=== PATIENT | male | born 1950 | race Caucasian/White ===

== ENCOUNTER → 2016-06-12 | Outpatient (CLI) | payer BC ==
[~2016-06-12] MED LIST: AC500T PO; ALLP100T PO; ASP81CT PO; CEPH250T PO; DILT300C PO; DILT360C20 PO; DILT360C30 PO; ENOX100D9 SQ; FLUT16SP22 NSEACH; FLUT50DI IH; GLUC-113 PO; HYDR-34 PO; HYDR-3454 PO; NAPR220C PO; NITR-33 PO; OMEG-9 PO; OXYC1TAB87 PO; POLY17PO23 PO; TADA5TAB2 PO; TAMS0.4C2 PO; TMSL.4C PO; WRF10T PO
[2016-06-12 17:35] LABS: ALANINE AMINOTRANSFERASE 18 U/L (0-55); ALBUMIN 3.8 G/DL (3.2-4.5); ANION GAP 4 MMOL/L (5-14); ASPARTATE AMINO TRANSFERASE 21 U/L (5-34); BILIRUBIN,TOTAL 0.4 MG/DL (0.1-1.0); BLOOD UREA NITROGEN 30 MG/DL (7-18); BUN/CREATININE RATIO 26; CALCIUM 8.9 MG/DL (8.5-10.1); CARBON DIOXIDE 28 MMOL/L (21-32); CHLORIDE 110 MMOL/L (98-107); CREATININE SERUM 1.14 MG/DL (0.60-1.30); GFR ESTIMATED > 60; GLUCOSE 111 MG/DL (70-105); POTASSIUM 4.2 MMOL/L (3.6-5.0); SODIUM 142 MMOL/L (135-145); TOTAL PROTEIN 6.4 G/DL (6.4-8.2)
== END ==
LOC: LAB 17:02
PROVIDERS: ATTEND Family Medicine
DX: I10 Essential (primary) hypertension (principal)
CPT/HCPCS: 36415; 80053

== ENCOUNTER → 2016-08-04 | Outpatient (CLI) | payer BC ==
--- NOTE | 2016-08-04 15:53 | Diagnostic Imaging Report ---
INDICATION: Right shoulder pain. TECHNIQUE: AP, oblique, and transscapular views of the right shoulder were obtained. FINDINGS: No fracture or dislocation is seen. There is no acute bony abnormality. There is mild degenerative change of the AC joint. IMPRESSION: Mild degenerative change of the AC joint; otherwise, negative study. Dictated by: Dictated on workstation # [id number]
--- NOTE | 2016-08-04 17:27 | Diagnostic Imaging Report ---
AP and lateral views of the thoracic spine. INDICATION: Back pain. FINDINGS: The alignment of the thoracic spine is satisfactory. The vertebral body heights are preserved. Disc heights are also preserved. Multilevel anterior osteophytes are noted. The appearance of the vertebral soft tissues appears grossly unremarkable. IMPRESSION: Degenerative changes with multilevel anterior osteophytes seen. Dictated by: Dictated on workstation # [id number]
--- NOTE | 2016-08-04 17:33 | Diagnostic Imaging Report ---
Three views of the cervical spine. INDICATION: Neck pain. FINDINGS: There is straightening of the cervical spine. The vertebral body heights are preserved. There is mild disc height loss at C3/C4 and also involving C5/C6 and C6/C7. Multilevel anterior osteophytes were seen. Multilevel posterior osteophytes are also noted. Alignment of the facet joints appears satisfactory. There is satisfactory alignment of the lateral masses of C1 and C2. The prevertebral soft tissues appear unremarkable. IMPRESSION: Multilevel disc degenerative changes with suggestion of small posterior osteophytes. Dictated by: Dictated on workstation # [id number]
== END ==
LOC: RAD 15:19
PROVIDERS: ATTEND Family Medicine
DX: M50.31 Other cervical disc degeneration, high cervical region (principal); M47.814 Spondylosis without myelopathy or radiculopathy, thoracic region; M25.511 Pain in right shoulder
CPT/HCPCS: 72040; 72072; 73030

== ENCOUNTER 2016-09-23 15:45 | Outpatient (RCR) | payer BC | END 2016-10-27 11:44 | disposition home or self-care (01) | PROVIDERS: ATTEND Family Medicine | DX: M25.511 Pain in right shoulder (principal) ==

== ENCOUNTER → 2018-06-30 | Outpatient (CLI) | payer BC, MEDICARE ==
[2018-06-30 09:30] LABS: HEMOGLOBIN 15.3 G/DL (13.3-17.7); RED CELL DISTRIBUTION WIDTH 13.4 % (10.0-14.5); WHITE BLOOD COUNT 4.6 10^3/uL (4.3-11.0)
[2018-06-30 09:52] LABS: ALANINE AMINOTRANSFERASE 18 U/L (0-55); ALKALINE PHOSPHATASE 66 U/L (40-136); BILIRUBIN,TOTAL 0.7 MG/DL (0.1-1.0); BUN/CREATININE RATIO 22; CALCIUM 9.3 MG/DL (8.5-10.1); CARBON DIOXIDE 25 MMOL/L (21-32); CHLORIDE 107 MMOL/L (98-107); CHOLESTEROL 178 MG/DL (< 200); CREATININE SERUM 1.03 MG/DL (0.60-1.30); GFR ESTIMATED > 60; GLUCOSE 102 MG/DL (70-105); HDL CHOLESTEROL 63 MG/DL (40-60); POTASSIUM 4.5 MMOL/L (3.6-5.0); SODIUM 140 MMOL/L (135-145); TOTAL PROTEIN 6.7 GM/DL (6.4-8.2); TRIGLYCERIDES 44 MG/DL (<150); VLDL CHOLESTEROL 9 MG/DL (5-40)
[2018-06-30 10:13] LABS: FREE T4 (FREE THYROXINE) 0.88 NG/DL (0.70-1.48)
== END ==
LOC: LAB 09:12
PROVIDERS: ATTEND Family Medicine
DX: E78.5 Hyperlipidemia, unspecified (principal); N40.0 Benign prostatic hyperplasia without lower urinary tract symptoms; I10 Essential (primary) hypertension; I49.9 Cardiac arrhythmia, unspecified
CPT/HCPCS: 36415; 80053; 80061; 84153; 84439; 84443; 85027

== ENCOUNTER → 2018-07-07 | Outpatient (CLI) | payer BC, MEDICARE | LOC: CARD 10:50 | PROVIDERS: ATTEND Family Medicine | DX: R01.1 Cardiac murmur, unspecified (principal); I49.9 Cardiac arrhythmia, unspecified | CPT/HCPCS: 93225; 93226; 93306 ==

== ENCOUNTER 2018-09-11 08:20 | Outpatient (RCR) | payer MEDICARE ==
[2018-11-20] MEDS ORDERED: ASPI-983 PO (09:47)
[2018-11-20] MEDS ORDERED: GLUC100016 PO (09:47)
[2018-11-20] MEDS ORDERED: DILT120T3 PO (09:47)
[2018-11-20] MEDS ORDERED: OMEG1CAP24 PO (09:47)
[2018-11-20] MEDS ORDERED: ALLO100T PO (09:47)
[2018-11-20] MEDS ORDERED: METO-387 PO (09:50)
[2018-11-20] MEDS ORDERED: IBUP-2055 PO (09:50)
[2018-11-20] MEDS ORDERED: ASCO10006 PO (09:50)
[2018-11-20] MEDS ORDERED: FLUT16SP22 NS (09:50)
[2018-11-20] MEDS ORDERED: DILT120C82 PO (09:56)
[2018-11-20] MEDS ORDERED: POLY17PO6 PO (09:57)
[2018-11-20] MEDS ORDERED: ACET325T38 PO (09:57)
== END 2018-12-10 | disposition home or self-care (01) ==
LOC: CARD 08:20
PROVIDERS: ATTEND Internal Medicine Interventional Cardiology
DX: R00.2 Palpitations (principal); I10 Essential (primary) hypertension

== ENCOUNTER 2018-11-20 08:37 | Day surgery (SDC) | payer MEDICARE ==
[~2018-11-20] VITALS: Ht 182.9 cm; Wt 104.3 kg
[2018-11-20] VITALS (14 sets, daily range): BP systolic 115–150; BP diastolic 82–112
[2018-11-20] MEDS ORDERED: HEParin (CATH LAB) 2,000 ML IV ONE (08:42)
[2018-11-20] MEDS ORDERED: LIDOCAINE 1% INJ 20 ML 20 ML VIAL ONE (08:42)
[2018-11-20] MEDS ORDERED: NS IV 1000 ML 1,000 ML ONE (08:42)
[2018-11-20] MEDS ORDERED: NS IV 1000 ML 1,000 ML IV SCH ×2 (08:44→15:00)
[2018-11-20] MEDS ORDERED: ISOPROTERENOL 0.2 MG/D5W 50 ML IV ONE (08:45)
[2018-11-20 09:17] LABS: MEAN PLATELET VOLUME 10.2 FL (7.4-10.4); RED CELL DISTRIBUTION WIDTH 13.6 % (10.0-14.5); WHITE BLOOD COUNT 5.3 10^3/uL (4.3-11.0)
[2018-11-20 09:40] LABS: ALANINE AMINOTRANSFERASE 14 U/L (0-55); ALKALINE PHOSPHATASE 66 U/L (40-136); BILIRUBIN,TOTAL 0.7 MG/DL (0.1-1.0); BUN/CREATININE RATIO 20; CALCIUM 9.2 MG/DL (8.5-10.1); CARBON DIOXIDE 24 MMOL/L (21-32); CHLORIDE 110 MMOL/L (98-107); CREATININE SERUM 0.98 MG/DL (0.60-1.30); GFR ESTIMATED > 60; GLUCOSE 104 MG/DL (70-105); SODIUM 141 MMOL/L (135-145); TOTAL PROTEIN 6.8 GM/DL (6.4-8.2)
[2018-11-20] MEDS ORDERED: ASPI-983 PO (09:47)
[2018-11-20] MEDS ORDERED: GLUC100016 PO (09:47)
[2018-11-20] MEDS ORDERED: ALLO100T PO (09:47)
[2018-11-20] MEDS ORDERED: OMEG1CAP24 PO (09:47)
[2018-11-20] MEDS ORDERED: DILT120T3 PO (09:47)
[2018-11-20] MEDS ORDERED: IBUP-2055 PO (09:50)
[2018-11-20] MEDS ORDERED: FLUT16SP22 NS (09:50)
[2018-11-20] MEDS ORDERED: METO-387 PO (09:50)
[2018-11-20] MEDS ORDERED: ASCO10006 PO (09:50)
[2018-11-20] MEDS ORDERED: DILT120C82 PO (09:56)
[2018-11-20] MEDS ORDERED: ACET325T38 PO (09:57)
[2018-11-20] MEDS ORDERED: POLY17PO6 PO (09:57)
--- NOTE | 2018-11-20 10:02 | NUR ---
SPOKE WITH PT (HE HAD A LIST) WELL CALLING [facility] IN [place] TO COMPLETE THE MED REC. HE WAS ABLE TO TELL ME ALL HIS MEDS AND HOW HE TAKES THEM. [facility] VERIFIED ALL MEDS AND THEY WERE ALL HAD GOOD DATING. OTC MEDS: ACETAMINOPHEN 325M TS Q 8 H PRN ASPIRIN 81M DAILY IBUPROFEN 200M TS Q 8 H PRN VITAMIN C : 1 DAILY FISH OIL; 1 DAILY GLUCOSAMINE; 1 DAILY FLUTICASONE: UD MIRALAX; 1 CAPFUL DAILY
[2018-11-20] MEDS ORDERED: PROPOFOL DRIP (ICU) 100 ML IV ONE ×2 (11:39→14:02)
[2018-11-20] MEDS ORDERED: ONDANSETRON 4 MG/2 ML (SDV) Z0FRAN ONE (11:39)
[2018-11-20] MEDS ORDERED: MIDAZOLAM 5 MG/5 ML (VERSED) VIAL ONE (11:40)
[2018-11-20] MEDS ORDERED: fentaNYL INJECTION 100 MCG/2 ML AMP ONE (11:40)
[2018-11-20] MEDS ORDERED: FAMOTIDINE 20MG/2ML IV (PEPCID) ONE (11:43)
[2018-11-20] MEDS ORDERED: SCOPOLAMINE 1.5 MG (TRANSDERM-SCOP) PATCH ONE (11:43)
[2018-11-20] MEDS ORDERED: PATIENT MAY USE OWN MEDS, ALL PO SCH (15:00)
--- NOTE | 2018-11-20 15:00 | Cardiac Procedure Note-CS/ASA ---
Pre-Procedure Note Pre-Op Procedure Note H&P Reviewed The H&P was reviewed, patient examined and no changes noted. Date H&P Reviewed: Nov 20, 2018 Time H&P Reviewed: 11:00 Conscious Sedation Pre-Proced Time 11:00 ASA Score 3 For ASA 3 and 4: Consider anesthesia and medical clearance. Also, for patients with a history of failed moderate sedation consider anesthesia. Airway Lungs Heart ASA score ASA 1: a normal healthy patient ASA 2: a patient with a mild systemic disease (mid diabetes, controlled hypertension, obesity ASA 3: a patient with a severe systemic disease that limits activity (angina, COPD, prior Myocardial infarction) ASA 4: a patient with an incapacitating disease that is a constant threat to life (CHF, renal failure) ASA 5: a moribund patient not expected to survive 24 hrs. (ruptured aneurysm) ASA 6: a declared brain- patient whose organs are being harvested. For emergent operations, add the letter E after the classification Mallampati Classification Grade 1 Sedation Plan Analgesia, Amnesia, Plan communicated to team members, Discussed options with patient/fam, Discussed risks with patient/fam The patient is an appropriate candidate to undergo the planned procedure, sedation, and anesthesia. The patient immediately re-assessed prior to indication. Regan ZARAGOZA MD Nov 20, 2018 15:00
--- NOTE | 2018-11-20 15:00 | Electrophysiology Procedure ---
EP Procedure DATE OF SERVICE:11/20/18 CARDIAC DIRECTIONAL DRILLER: Neel Cordero MD, [facility], [facility]. INDICATION:PSVT, palpitations. PREOPERATIVE DIAGNOSIS:PSVT, palpitations. POSTOPERATIVE DIAGNOSES:nonsustained right atrial tachycardia, no other sustained tachycardia. HISTORY: this is a 68-year-old gentleman with complains of palpitations. Noninvasive monitoring demonstrated PSVT at 176 BPM.The patient is planned for comprehensive EP study and ablation. PROCEDURE PERFORMED: 1. Comprehensive EP study with induction. 2. Fluoroscopy. 3. left atrial pacing and recording. 4. Drug infusion. COMPLICATION: None. ESTIMATED BLOOD LOSS: 10 mL. CONTRAST USED: None. FLUOROSCOPY TIME: 4.2 minutes. FLUOROSCOPY DOSE: 92 mgy. SPECIMENS: None. ANESTHESIA: Done by our anesthesia colleagues. ANTICOAGULATION: none. PROCEDURE IN DETAIL: After informed consent was taken, the patient was brought to the EP lab. Anesthesia was provided by our anesthesia colleagues. The patient was draped and prepped in the usual sterile fashion. The patient presented to the EP lab in sinus rhythm. Access was gained in the right femoral vein with a 6-Divehi and an 8-Divehi sheath. Left access in left femoral vein was gained with 5-Divehi and 6-Divehi sheath respectively. High right atrial catheter was an Linda catheter, right ventricular catheter was placed, his catheter and the CS catheter were also placed. A comprehensive EP study was done including left atrial pacing and recording. Dual AV daryn physiology could not be demonstrated. However we were able to demonstrate single AV daryn echoes and possible dual AV daryn echoes as well however the timing of the his to A was inconsistent. Left atrial pacing and recording did not demonstrate a left-sided bypass tract. RV pacing demonstrated concentric atrial activation in the CS. Isuprel was given and during rapid atrial pacing nonsustained right atrial tachycardia was demonstrated. However the tachycardia was not sustained to perform any diagnostic maneuvers. Variable cycle length. AA drives VV. termination in V. during Isuprel infusion and washout we could not induce AVNRT. Typical atrial flutter was not induced with rapid atrial pacing with and without Isuprel infusion. The patienttolerated the procedurewell and did not have any complication. The patientleft the lab in sinus rhythm. MEASUREMENTS/EP STUDY: AH interval 155 ms, HV interval 52 ms, NY interval 244 ms, QRS duration 65 ms, QT interval to 41 ms, R-R interval 725 ms, AV Wenckebach when pacing at 300 ms, Retrograde Wenckebach when pacing at cycle length 400 ms, Atrial ERP at 600/260 ms, Ventricular ERP was 600/240 ms, Atrial ERP was 500/240 ms, Atrial ERP was 400/190 ms, Atrial ERP was 450/200 ms, Atrial ERP was 600/250 ms, PLAN: The patient will be observed for 4 hours and then discharged. Neel Cordero MD, RS, CCDS Cardiac Electrophysiology Regan CORDERO MD Nov 20, 2018 15:00
[2018-11-20] MEDS ORDERED: MEPERIDINE (DEMEROL) INJ 50 MG/ML IVP ONE (15:30)
[2018-11-20] MEDS ORDERED: morphine INJ 10 MG/ML 1ML (SYR OR VIAL) IVP ONE (15:30)
--- NOTE | 2018-11-20 15:40 | Discharge Inst-Post CATH ---
Discharge Inst-CATH/EP Problems Reviewed?: Yes Final Diagnosis paroxysmal atrial tachycardia, PSVT Post Cardiac Cath/EP D/C Inst Follow Up/Plan Dr. Cordero in 2-3 weeks. <b>CARDIAC CATH/EP PROCEDURE DISCHARGE INSTRUCTIONS</b> ACTIVITY * Go Home directly and rest. * Limit activity of the leg (or wrist if it was used) for 7 days including aerobics, swimming, jogging, bicycling, etc. * Restrict stair-climbing for 7 days if possible, if not, climb up with your non-cath leg, then bring together on the same step. * Avoid lifting, pushing, pulling or excessive movement of the affected extremity for 7 days. * Customary sexual activity may be resumed after 2 days-use caution not to use a position that strains or causes pain to the affected extremity. * No driving for 24 hours. * NO SMOKING. * Avoid straining for bowel movements for 7 days. * Gentle walking on level ground is allowed. * Returning to work will depend on the type of procedure and the results. Your doctor will discuss this with you. CALL YOUR DOCTOR FOR ANY OF THE FOLLOWING: *If bleeding from the puncture site occurs- Apply gentle pressure to site with clean cloth and call your doctor or EMS. * If a knot or lump forms under the skin, increases in size, or causes pain. * If bruising appears to be worsening or moving further down your leg instead of disappearing. * Temperature above 101 F. CARE OF YOUR GROIN INCISION; * Bruising or purple discoloration of the skin near the puncture site is common. * You may shower only, no bathtub bathing for 5 days. Be careful to avoid slip ping as your leg may feel stiff. * If a closure device was used on your femoral artery, please see the attached guide regarding care of the device and your leg. * Leave dressing on FOR 24 hours. CARE OF YOUR WRIST INCISION; * Bruising or purple discoloration of the skin near the puncture site is common. * You may shower. * DO NOT submerge wrist. * Leave dressing on FOR 24 hours. Regan CORDERO MD Nov 20, 2018 15:40
--- NOTE | 2018-11-20 15:47 | Cardiology Discharge Summary ---
Diagnosis/Chief Complaint Date of Admission 11/20/2018 Date of Discharge 11/20/2018 Admission Diagnosis PSVT Final/Discharge Diagnosis paroxysmal atrial tachycardia, PSVT Chief Complaint/HPI Chief Complaint/HPI this is a 68-year-old gentleman who complains of palpitations. Noninvasive monitoring demonstrated PSVT at 176 BPM for 13 beats. Numerous episodes. EP study and possible ablation was recommended. Discharge Summary Procedures EP study did not demonstrate dual AV daryn physiology. No evidence of left lateral pathway. without Isuprel Possible single and dual AV daryn echoes which were not confirmed. On Isuprel and rapid atrial pacing,nonsustained right atrial tachycardia, with the earliest activation in the high right atrial catheter. A driving the V. AA cycle length variability. Termination in V. However we could not perform any diagnostic maneuvers since the tachycardia was not sustained. Tachycardia cycle length of [id number] milliseconds. No other arrhythmias were inducible. Therefore no ablation was done. it is likely that the patient may have dual AV daryn echoes however in the absence of dual AV daryn physiology, I decided not to do slow pathway modification. Discharge Physical Examination unremarkable. Hospital Course Was the Problem List Reviewed?: Yes stable. Pending Labs Laboratory Tests 11/20/18 09:05: White Blood Count 5.3, Red Blood Count 4.79, Hemoglobin 15.0, Hematocrit 45, Mean Corpuscular Volume 94, Mean Corpuscular Hemoglobin 31, Mean Corpuscular Hemoglobin Concent 34, Red Cell Distribution Width 13.6, Platelet Count 142, Mean Platelet Volume 10.2, Prothrombin Time 14.0, INR Comment 1.0, Activated Partial Thromboplast Time 33, Sodium Level 141, Potassium Level 4.0, Chloride Level 110, Carbon Dioxide Level 24, Anion Gap 7, Blood Urea Nitrogen 20, Creatinine 0.98, Estimat Glomerular Filtration Rate > 60, BUN/Creatinine Ratio 20, Glucose Level 104, Calcium Level 9.2, Corrected Calcium 9.2, Total Bilirubin 0.7, Aspartate Amino Transf (AST/SGOT) 19, Alanine Aminotransferase (ALT/SGPT) 1 4, Alkaline Phosphatase 66, Total Protein 6.8, Albumin 4.0 Discussion & Recommendations Discussion discussed at length with the . Patient will probably get a loop monitor as an outpatient. Follow up appt.: Dr. Cordero in 2-3 weeks. Dicharge Diet: Cardiac Diet Activity as Tolerated: Yes Home Medications Reviewed patient Home Medication Reconciliation performed by pharmacy medication reconciliations prosthetic technician and/or nursing. Patients Allergies have been reviewed. Discharge Home Medications: Reviewed and agree with Discharge Medication list on patient's Discharge Instruction sheet Condition at discharge stable. Instructions to patient/family Dr. Cordero in 2-3 weeks. Regan CORDERO MD Nov 20, 2018 15:47
== END 2018-11-20 20:46 | disposition home or self-care (01) ==
LOC: CATH 08:37 → ICU 15:59 → CATH 20:46
PROVIDERS: ATTEND Internal Medicine Interventional Cardiology
DX: I47.1 Supraventricular tachycardia (principal); I10 Essential (primary) hypertension; I49.1 Atrial premature depolarization; I49.3 Ventricular premature depolarization; Z79.82 Long term (current) use of aspirin; Z79.899 Other long term (current) drug therapy; Z79.51 Long term (current) use of inhaled steroids; Z82.3 Family history of stroke; Z80.9 Family history of malignant neoplasm, unspecified; Z82.49 Family history of ischemic heart disease and other diseases of the circulatory system; Z84.1 Family history of disorders of kidney and ureter
CPT/HCPCS: 36415; 80053; 85027; 85610; 85730; 87081; 93005; 93620; 93621; 93623

== ENCOUNTER → 2018-12-21 | Day surgery (SDC) | payer MEDICARE ==
[~2018-12-21] VITALS: Ht 182 cm; Wt 110.0 kg
[~2018-12-21] MED LIST changes: +ACET325T38 PO; +ALLO100T PO; +ASCO10006 PO; +ASPI-983 PO; +DILT120C82 PO; +DILT120T3 PO; +FLUT16SP22 NS; +GLUC100016 PO; +IBUP-2055 PO; +LIDOCAINE 1% INJ 20 ML 20 ML VIAL INJ ONE; +LIDOCAINE 1% INJ 20 ML 20 ML VIAL ONE; +METO-387 PO; +OMEG1CAP24 PO; +POLY17PO6 PO
[2018-12-21 08:38] VITALS: BP 138/83
--- NOTE | 2018-12-21 15:29 | Implantation of Loop Monitor ---
Implant of Loop Monitior PROCEDURE PHYSICIAN: Neel Cordero MD IMPLANTATION OF LOOP MONITOR REPORT DATE OF PROCEDURE: 12/21/18 PERFORMING PHYSICIAN: Dr. Sudhakar Cordero. INDICATION: Long-term surveillance of atrial fibrillation PREOP DIAGNOSIS: Long-term surveillance of atrial fibrillation POSTOP DIAGNOSIS: Paroxysmal Atrial fibrillation, s/p implantation of loop recorder. PROCEDURE DETAILS: The patient is a 68 male with history of paroxysmal atrial fibrillation requiring long-term surveillance. Therefore implantable loop recorder was discussed and agreed with the patient. Informed consent was taken. All risks and complications were discussed at length. The patient was draped and prepped in the usual sterile fashion. Local anesthesia was lidocaine, which was given in the substernal area close to the 4th intercostal space. Loop monitor was implanted according to the protocol. Steri-Strips were placed at the end of the procedure. There were no complications and the patient tolerated the procedure well. The device was interrogated with a voltage of 0.49 mV. ANESTHESIA: Local anesthesia with lidocaine. COMPLICATIONS: None CONTRAST/FLUOROSCOPY: None CONCLUSION: 1. Successful implantation of loop monitor for long-term surveillance of paroxysmal atrial fibrillation. 2. No complication and the patient tolerated the procedure well. Neel Cordero MD, [facility], CCDS Cardiac Electrophysiology Regan CORDERO MD Dec 21, 2018 15:29
== END ==
LOC: CATH 08:24
PROVIDERS: ATTEND Internal Medicine Interventional Cardiology
DX: I48.0 Paroxysmal atrial fibrillation (principal); I47.1 Supraventricular tachycardia; I10 Essential (primary) hypertension; I49.3 Ventricular premature depolarization; I49.1 Atrial premature depolarization; Z95.818 Presence of other cardiac implants and grafts; Z79.82 Long term (current) use of aspirin; Z79.899 Other long term (current) drug therapy; Z88.8 Allergy status to other drugs, medicaments and biological substances; Z82.49 Family history of ischemic heart disease and other diseases of the circulatory system; Z80.9 Family history of malignant neoplasm, unspecified; Z82.3 Family history of stroke
CPT/HCPCS: 33285

== ENCOUNTER → 2019-08-14 | Outpatient (CLI) | payer MEDICARE ==
[~2019-08-14] MED LIST changes: -IBUP-2055 PO; +IBUP-2473 PO; -LIDOCAINE 1% INJ 20 ML 20 ML VIAL INJ ONE; -LIDOCAINE 1% INJ 20 ML 20 ML VIAL ONE; -METO-387 PO; +MTP25TSR PO
[2019-08-14 09:05] LABS: BASOPHILS % (AUTO) 0 % (0-10); EOSINOPHILS # (AUTO) 0.1 10^3/uL (0.0-0.3); EOSINOPHILS % (AUTO) 2 % (0-10); HEMATOCRIT 46 % (40-54); HEMOGLOBIN 15.5 G/DL (13.3-17.7); LYMPHOCYTES # (AUTO) 1.3 X 10^3 (1.0-4.0); LYMPHOCYTES % (AUTO) 25 % (12-44); MEAN CORPUSCULAR HEMOGLOBIN 32 PG (25-34); MEAN CORPUSCULAR HGB CONC 34 G/DL (32-36); MEAN CORPUSCULAR VOLUME 95 FL (80-99); MEAN PLATELET VOLUME 9.7 FL (7.4-10.4); MONOCYTES # (AUTO) 0.5 X 10^3 (0.0-1.0); MONOCYTES % (AUTO) 9 % (0-12); NEUTROPHILS # (AUTO) 3.3 X 10^3 (1.8-7.8); NEUTROPHILS % (AUTO) 63 % (42-75); PLATELET COUNT 149 10^3/uL (130-400); RED CELL DISTRIBUTION WIDTH 14.4 % (10.0-14.5); WHITE BLOOD COUNT 5.2 10^3/uL (4.3-11.0)
[2019-08-14 09:25] LABS: CHLORIDE 108 MMOL/L (98-107); POTASSIUM 4.6 MMOL/L (3.6-5.0); SODIUM 141 MMOL/L (135-145)
[2019-08-14 09:26] LABS: CALCIUM 9.2 MG/DL (8.5-10.1)
[2019-08-14 09:27] LABS: TRIGLYCERIDES 61 MG/DL (<150); VLDL CHOLESTEROL 12 MG/DL (5-40)
[2019-08-14 09:28] LABS: GLUCOSE 104 MG/DL (70-105)
[2019-08-14 09:29] LABS: BILIRUBIN,TOTAL 0.8 MG/DL (0.1-1.0); CARBON DIOXIDE 24 MMOL/L (21-32)
[2019-08-14 09:31] LABS: ALKALINE PHOSPHATASE 68 U/L (40-136); CREATININE SERUM 1.01 MG/DL (0.60-1.30); GFR ESTIMATED > 60
[2019-08-14 09:32] LABS: CHOLESTEROL 188 MG/DL (< 200)
[2019-08-14 09:33] LABS: BUN/CREATININE RATIO 24
[2019-08-14 09:34] LABS: HDL CHOLESTEROL 65 MG/DL (40-60)
[2019-08-14 09:35] LABS: ALANINE AMINOTRANSFERASE 17 U/L (0-55); URIC ACID 4.6 MG/DL (2.6-7.2)
[2019-08-14 09:43] LABS: FREE T4 (FREE THYROXINE) 0.83 NG/DL (0.70-1.48)
== END ==
LOC: LAB 08:37
PROVIDERS: ATTEND Family Medicine
DX: E78.2 Mixed hyperlipidemia (principal); I10 Essential (primary) hypertension; M10.9 Gout, unspecified; N40.0 Benign prostatic hyperplasia without lower urinary tract symptoms
CPT/HCPCS: 36415; 80053; 80061; 84153; 84439; 84443; 84550; 85025

== ENCOUNTER → 2020-08-12 | Outpatient (CLI) | payer MEDICARE ==
[~2020-08-12] MED LIST changes: +ASCO100024 PO; -ASCO10006 PO; +ASPI-1238 PO; -ASPI-983 PO
[2020-08-12 10:27] LABS: BASOPHILS % (AUTO) 1 % (0-10); EOSINOPHILS # (AUTO) 0.1 10^3/uL (0.0-0.3); EOSINOPHILS % (AUTO) 2 % (0-10); HEMATOCRIT 49 % (40-54); HEMOGLOBIN 16.1 g/dL (13.3-17.7); LYMPHOCYTES # (AUTO) 1.5 10^3/uL (1.0-4.0); LYMPHOCYTES % (AUTO) 24 % (12-44); MEAN CORPUSCULAR HEMOGLOBIN 30 pg (25-34); MEAN CORPUSCULAR HGB CONC 33 g/dL (32-36); MEAN CORPUSCULAR VOLUME 93 fL (80-99); MEAN PLATELET VOLUME 10.5 fL (9.0-12.2); MONOCYTES # (AUTO) 0.6 10^3/uL (0.0-1.0); MONOCYTES % (AUTO) 9 % (0-12); NEUTROPHILS % (AUTO) 64 % (42-75); PLATELET COUNT 161 10^3/uL (130-400); WHITE BLOOD COUNT 6.2 10^3/uL (4.3-11.0)
[2020-08-12 10:37] LABS: ALANINE AMINOTRANSFERASE 18 U/L (0-55); ALKALINE PHOSPHATASE 67 U/L (40-136); BILIRUBIN,TOTAL 0.5 MG/DL (0.1-1.0); BUN/CREATININE RATIO 22; CALCIUM 9.5 MG/DL (8.5-10.1); CARBON DIOXIDE 27 MMOL/L (21-32); CHLORIDE 107 MMOL/L (98-107); CHOLESTEROL 182 MG/DL (< 200); CREATININE SERUM 1.19 MG/DL (0.60-1.30); GFR ESTIMATED > 60; GLUCOSE 105 MG/DL (70-105); HDL CHOLESTEROL 64 MG/DL (40-60); POTASSIUM 4.3 MMOL/L (3.6-5.0); SODIUM 141 MMOL/L (135-145); TOTAL PROTEIN 7.3 GM/DL (6.4-8.2); TRIGLYCERIDES 71 MG/DL (<150); VLDL CHOLESTEROL 14 MG/DL (5-40)
[2020-08-12 10:58] LABS: FREE T4 (FREE THYROXINE) 0.94 NG/DL (0.70-1.48)
== END ==
LOC: LAB 09:41
PROVIDERS: ATTEND Family Medicine
DX: Z00.01 Encounter for general adult medical examination with abnormal findings (principal); E78.2 Mixed hyperlipidemia; I10 Essential (primary) hypertension
CPT/HCPCS: 36415; 80053; 80061; 84439; 84443; 85025

== ENCOUNTER 2021-10-07 07:07 | Outpatient (CLI) | payer MEDICARE ==
[2021-10-07] MEDS ORDERED: CHOL-6 PO (08:50)
[2021-10-07] MEDS ORDERED: AMLO-250 PO (08:50)
[2021-10-07] MEDS ORDERED: AMIO200T65 PO (08:50)
[2021-10-07] MEDS ORDERED: DIPH25TA29 PO (08:51)
[2021-10-07] MEDS ORDERED: POTA15TA9 PO (08:58)
== END 2021-10-07 09:06 | disposition home or self-care (01) ==
LOC: PREOP 07:07
PROVIDERS: ATTEND Internal Medicine
DX: Z01.818 Encounter for other preprocedural examination (principal)

== ENCOUNTER 2021-10-16 06:52 | Day surgery (SDC) | payer MEDICARE ==
--- NOTE | 2021-10-07 08:43 | HISTORY AND PHYSICAL ---
DATE OF SERVICE: COLONOSCOPY HISTORY AND PHYSICAL DATE OF ADMISSION: ____. HISTORY OF PRESENT ILLNESS: The patient is a 71-year-old white male referred by Dr. Rojas for screening colonoscopy. He was not sure how long it had been, but on review of his electronic medical record, he underwent colonoscopy in [address] Lynn which was reportedly normal. He denies change in bowel habit or abdominal pain, melena or bright red blood per rectum. He is deemed to be of average risk as he is not aware of any family history for colon cancer. PAST SURGICAL HISTORY: Significant for right total knee replacement in 04/2000. PAST MEDICAL HISTORY: Significant for hypertension, paroxysmal atrial fibrillation and PSVT. There have been no reported recurrences on amiodarone. He has an implanted loop recorder. Recent interrogation per his reports no evidence for atrial fib or any significant arrhythmias. SOCIAL HISTORY: He is retired. Previous county employee for 32 years. No smoking history, one or two beers once or twice a week in regard to alcohol intake. FAMILY HISTORY: He is not aware of any family history for colon cancer. REVIEW OF SYSTEMS: CONSTITUTIONAL: Denies night sweats, chills, fever or change in weight. GASTROINTESTINAL: As noted in the HPI. PULMONARY: Denies cough, wheezing or shortness of breath. CARDIOVASCULAR: Denies orthopnea, PND, pedal edema, palpitations or chest discomfort. PHYSICAL EXAMINATION: GENERAL: Reveals a pleasant white male in no acute distress. VITAL SIGNS: Weight 240 pounds and blood pressure 130/90. HEENT: Unremarkable. Sclerae nonicteric. NECK: Reveals no JVD, adenopathy or bruits. CHEST: Clear to auscultation. CARDIOVASCULAR: Reveals a regular rate and rhythm without murmur, S3 or S4. ABDOMEN: Soft, supple without mass, organomegaly or tenderness. EXTREMITIES: Reveal no cyanosis, clubbing or edema. ASSESSMENT AND PLAN: The patient is being set up for screening colonoscopy, deemed to be of average risk. Prep instructions were given and questions were answered. Electronic medical record was reviewed. I thank you for the referral of this pleasant gentleman. Job ID: [id number] DocumentID: [id number] Dictated Date: 10/01/2021 15:42:47 Expedition Supervisor Date: 10/01/2021 16:17:24 Dictated By: PAIGE MONTES MD [facility]ITALIn[facility]
[~2021-10-16] VITALS: Ht 183 cm; Wt 110.0 kg
[~2021-10-16 06:52] MED LIST changes: +AMIO200T65 PO; +AMLO-250 PO; +CHOL-6 PO; +DIPH25TA29 PO; +POTA15TA9 PO
[2021-10-16] MEDS ORDERED: LACTATED RINGERS 1,000 ML IV STA (07:02)
[2021-10-16 07:13] VITALS: BP 136/80
[2021-10-16] MEDS ORDERED: PROPOFOL INJECTION 50 ML IV ONE (07:25)
[2021-10-16] MEDS ORDERED: MIDAZOLAM 2 MG/2 ML (VERSED) VIAL ONE (07:25)
[2021-10-16] MEDS ORDERED: ONDANSETRON 4 MG/2 ML (SDV) Z0FRAN IV ONE (07:30)
--- NOTE | 2021-10-16 08:00 | Pre-Op Note & Conscious Sedat ---
Pre-Operative Progress Note Date of Available H&P: Oct 16, 2021 Date H&P Reviewed: Oct 16, 2021 Time H&P Reviewed: 07:45 History & Physical: H&P Reviewed, Patient Examed, No changes noted Pre-Op Diagnosis: screening colon Conscious Sedation Pre-Proced Time 07:59 ASA Score 2 For ASA 3 and 4: Consider anesthesia and medical clearance. Also, for patients with a history of failed moderate sedation consider anesthesia. Airway Lungs Heart ASA score ASA 1: a normal healthy patient ASA 2: a patient with a mild systemic disease (mid diabetes, controlled hypertension, obesity ASA 3: a patient with a severe systemic disease that limits activity (angina, COPD, prior Myocardial infarction) ASA 4: a patient with an incapacitating disease that is a constant threat to life (CHF, renal failure) ASA 5: a moribund patient not expected to survive 24 hrs. (ruptured aneurysm) ASA 6: a declared brain- patient whose organs are being harvested. For emergent operations, add the letter E after the classification Mallampati Classification Grade 2 Sedation Plan Analgesia, Amnesia, Plan communicated to team members, Discussed options with patient/fam, Discussed risks with patient/fam The patient is an appropriate candidate to undergo the planned procedure, sedation, and anesthesia. The patient immediately re-assessed prior to indication. PAIGE MONTES MD Oct 16, 2021 08:00
[2021-10-16 08:34] VITALS: BP 99/63
[2021-10-16 08:39] VITALS: BP 103/67
[2021-10-16 08:45] VITALS: BP 119/67
[2021-10-16 09:04] VITALS: BP 119/67
--- NOTE | 2021-10-16 11:48 | Anesthesia-General Post-Op ---
MAC Patient Condition Mental Status/LOC: Same as Preop Cardiovascular: Satisfactory Nausea/Vomiting: Absent Respiratory: Satisfactory Pain: Controlled Complications: Absent Post Op Complications Complications None Follow Up Care/Instructions Patient Instructions None needed. Anesthesiology Discharge Order Discharge Order Patient is doing well, no complaints, stable vital signs, no apparent adverse anesthesia problems. No complications reported per nursing. ROMA ESPINAL CRNA Oct 16, 2021 11:48
--- NOTE | 2021-10-16 13:43 | OPERATIVE REPORT ---
DATE OF SERVICE: COLONOSCOPY SUMMARY INDICATION FOR THE PROCEDURE: Screening colonoscopy. PROCEDURE IN DETAIL: The patient was placed in the left lateral decubitus position. Prior to undergoing colonoscopy, digital rectal evaluation was performed. Anal sphincter tone was normal. The perianal reflexes intact. The prostate is mildly enlarged and anodular on digital inspection. No abnormalities were noted on digital inspection of the anal canal or distal rectal vault. The colonoscope was then inserted into the rectum and under direct visualization advanced to the cecum. The cecum was identified by identification of the ileocecal valve and cecal strap. Photographic documentation was obtained. A careful inspection was made as the colonoscope was withdrawn. Quality of prep was fair. FINDINGS: There was one grade II internal hemorrhoid complex noted. No other rectal abnormalities were noted. No evidence for external hemorrhoids were noted. Several small sigmoid diverticulum were present without evidence for diverticulitis. No other sigmoid colonic abnormalities were appreciated. The descending colon, splenic flexure, transverse colon, hepatic flexure, ascending colon, and cecum were unremarkable. ASSESSMENT One grade II internal hemorrhoid complex was noted to digital rectal evaluation, was compatible with mild BPH. Mild diverticular disease confined to the sigmoid colon was present without evidence of diverticulitis. There was no evidence for neoplasia on today's evaluation. Considering that this is the patient's second normal colonoscopy, his age and lack of family history for colon cancer, we would not advocate future screening colonoscopy. Job ID: [id number] DocumentID: [id number] Dictated Date: 10/16/2021 08:31:22 Camp Manager Date: 10/16/2021 13:42:55 Dictated By: PAIGE MONTES MD
== END 2021-10-16 09:35 | disposition home or self-care (01) ==
LOC: ENDO 06:52
PROVIDERS: ATTEND Internal Medicine
DX: Z12.11 Encounter for screening for malignant neoplasm of colon (principal); N40.0 Benign prostatic hyperplasia without lower urinary tract symptoms; K64.1 Second degree hemorrhoids; K57.30 Diverticulosis of large intestine without perforation or abscess without bleeding; Z79.82 Long term (current) use of aspirin; Z28.310 Unvaccinated for COVID-19

== ENCOUNTER → 2021-11-13 | Outpatient (CLI) | payer MEDICARE ==
[2021-11-13 12:15] LABS: CREATININE SERUM 1.39 MG/DL (0.60-1.30); POTASSIUM 4.5 MMOL/L (3.6-5.0)
== END ==
LOC: LAB 11:29
PROVIDERS: ATTEND Family Medicine
DX: N28.9 Disorder of kidney and ureter, unspecified (principal)
CPT/HCPCS: 36415; 80048

== ENCOUNTER → 2022-02-22 | Outpatient (CLI) | payer MEDICARE ==
[2022-02-22 12:30] LABS: ALBUMIN 3.9 GM/DL (3.2-4.5); BILIRUBIN,TOTAL 0.6 MG/DL (0.1-1.0); CREATININE SERUM 1.31 MG/DL (0.60-1.30); POTASSIUM 4.5 MMOL/L (3.6-5.0); TOTAL PROTEIN 6.9 GM/DL (6.4-8.2)
== END ==
LOC: LAB 11:58
PROVIDERS: ATTEND Family Medicine
DX: E78.2 Mixed hyperlipidemia (principal); Z79.899 Other long term (current) drug therapy
CPT/HCPCS: 36415; 80053; 80061; 84443

== ENCOUNTER → 2023-02-21 | Outpatient (CLI) | payer MEDICARE ==
[2023-02-21 09:11] LABS: BASOPHILS % (AUTO) 1 % (0-10); EOSINOPHILS # (AUTO) 0.1 10^3/uL (0.0-0.3); EOSINOPHILS % (AUTO) 2 % (0-10); HEMATOCRIT 46 % (40-54); HEMOGLOBIN 15.3 g/dL (13.3-17.7); LYMPHOCYTES # (AUTO) 1.5 10^3/uL (1.0-4.0); LYMPHOCYTES % (AUTO) 26 % (12-44); MEAN CORPUSCULAR HEMOGLOBIN 31 pg (25-34); MEAN CORPUSCULAR HGB CONC 33 g/dL (32-36); MEAN CORPUSCULAR VOLUME 95 fL (80-99); MEAN PLATELET VOLUME 9.6 fL (9.0-12.2); MONOCYTES # (AUTO) 0.4 10^3/uL (0.0-1.0); MONOCYTES % (AUTO) 7 % (0-12); NEUTROPHILS # (AUTO) 3.7 10^3/uL (1.8-7.8); NEUTROPHILS % (AUTO) 64 % (42-75); PLATELET COUNT 143 10^3/uL (130-400); WHITE BLOOD COUNT 5.7 10^3/uL (4.3-11.0)
[2023-02-21 09:35] LABS: ALBUMIN 3.8 GM/DL (3.2-4.5); BILIRUBIN,TOTAL 0.6 MG/DL (0.1-1.0); CALCIUM 9.3 MG/DL (8.5-10.1); CREATININE SERUM 1.38 MG/DL (0.60-1.30); POTASSIUM 4.5 MMOL/L (3.6-5.0)
[2023-02-21 09:56] LABS: FREE T4 (FREE THYROXINE) 0.9 NG/DL (0.70-1.48)
== END ==
LOC: LAB 08:52
PROVIDERS: ATTEND Family Medicine
DX: Z00.00 Encounter for general adult medical examination without abnormal findings (principal); N18.2 Chronic kidney disease, stage 2 (mild); I48.0 Paroxysmal atrial fibrillation; E78.2 Mixed hyperlipidemia
CPT/HCPCS: 36415; 80053; 80061; 84153; 84439; 84443; 85025